=== PATIENT | female | born 1955 | race African-American/Black ===

== ENCOUNTER 2016-11-25 20:32 | Emergency (ER) | payer MEDICAID ==
[~2016-11-25] VITALS: Ht 160 cm; Wt 70.0 kg
[~2016-11-25 20:32] MED LIST: PRED5TAB48 PO
[2016-11-25] MEDS ORDERED: IPRATROPIUM BROMIDE (0.02%) 0.5MG/2.5ML NEB HHN STA (23:16)
[2016-11-25] MEDS ORDERED: PREDNISONE 20MG TABLET PO STA (23:16)
[2016-11-25] MEDS ORDERED: ALBUTEROL (0.083%) 2.5MG/3ML NEB HHN STA (23:16)
[2016-11-26 02:23] VITALS: BP 132/68
== END 2016-11-26 02:28 | disposition home or self-care (01) ==
LOC: ER 21:46
DX: J45.901 Unspecified asthma with (acute) exacerbation (principal)
CPT/HCPCS: 94640; 99283; J7512; J7611; Z7610

== ENCOUNTER 2017-01-30 22:48 | Emergency (ER) | payer MEDICAID ==
[~2017-01-30] VITALS: Ht 160 cm; Wt 71.0 kg
[2017-01-31] MEDS ORDERED: IBUPROFEN 600MG TABLET PO ONE (07:00)
[2017-01-31 07:35] VITALS: BP 124/63
== END 2017-01-31 08:20 | disposition home or self-care (01) ==
LOC: ER 01-31 08:11
DX: S63.501A Unspecified sprain of right wrist, initial encounter (principal); S90.32XA Contusion of left foot, initial encounter; S90.31XA Contusion of right foot, initial encounter; S50.01XA Contusion of right elbow, initial encounter; J45.909 Unspecified asthma, uncomplicated; W01.0XXA Fall on same level from slipping, tripping and stumbling without subsequent striking against object, initial encounter; Y93.89 Activity, other specified; Y92.89 Other specified places as the place of occurrence of the external cause; Y99.8 Other external cause status
CPT/HCPCS: 29125; 73080; 73110; 73630; 99284

== ENCOUNTER 2017-02-04 03:48 | Emergency (ER) | payer MEDICAID ==
[~2017-02-04] VITALS: Ht 160 cm; Wt 71.0 kg
[2017-02-04] MEDS ORDERED: IPRATROPIUM BROMIDE (0.02%) 0.5MG/2.5ML NEB HHN STA (06:58)
[2017-02-04] MEDS ORDERED: ALBUTEROL (0.083%) 2.5MG/3ML NEB HHN STA (06:58)
[2017-02-04 08:00] VITALS: BP 123/63
== END 2017-02-04 08:44 | disposition home or self-care (01) ==
LOC: ER 07:28
DX: J45.901 Unspecified asthma with (acute) exacerbation (principal); S63.501D Unspecified sprain of right wrist, subsequent encounter; X58.XXXD Exposure to other specified factors, subsequent encounter
CPT/HCPCS: 94640; 99283; J7611; Z7610

== ENCOUNTER 2017-02-12 23:21 | Emergency (ER) | payer MEDICAID ==
[~2017-02-12] VITALS: Ht 160 cm; Wt 72.0 kg
[2017-02-13] MEDS ORDERED: AZITHROMYCIN 500 MG TABLET PO STA (05:11)
[2017-02-13] MEDS ORDERED: ALBUTEROL (0.083%) 2.5MG/3ML NEB HHN STA (05:11)
[2017-02-13] MEDS ORDERED: IPRATROPIUM BROMIDE (0.02%) 0.5MG/2.5ML NEB HHN STA (05:11)
[2017-02-13] MEDS ORDERED: PREDNISONE 20MG TABLET PO STA (05:11)
[2017-02-13] MEDS ORDERED: ALBUTEROL (0.5%) 2.5MG/0.5ML NEB HHN ONE (05:39)
[2017-02-13 08:51] VITALS: BP 138/69
== END 2017-02-13 09:01 | disposition home or self-care (01) ==
LOC: ER 02-13 07:24
DX: S62.001A Unspecified fracture of navicular [scaphoid] bone of right wrist, initial encounter for closed fracture (principal); J45.901 Unspecified asthma with (acute) exacerbation; X58.XXXA Exposure to other specified factors, initial encounter; Y93.89 Activity, other specified; Y92.89 Other specified places as the place of occurrence of the external cause; Y99.8 Other external cause status
CPT/HCPCS: 29130; 71010; 73110; 94640; 99284; J7512; J7611; Z7610

== ENCOUNTER 2017-02-25 21:43 | Emergency (ER) | payer MEDICAID ==
[~2017-02-25] VITALS: Ht 160 cm; Wt 70.0 kg
[2017-02-25] MEDS ORDERED: PREDNISONE 20MG TABLET PO STA (22:31)
[2017-02-25] MEDS ORDERED: IPRATROPIUM BROMIDE (0.02%) 0.5MG/2.5ML NEB HHN STA (22:31)
[2017-02-26] MEDS: ALBUTEROL (0.083%) 2.5MG/3ML NEB HHN SCH ×3 (00:30→01:00)
[2017-02-26 01:23] VITALS: BP 140/78
== END 2017-02-26 00:52 | disposition home or self-care (01) ==
LOC: ER 21:43
DX: J45.901 Unspecified asthma with (acute) exacerbation (principal); R00.1 Bradycardia, unspecified; R03.0 Elevated blood-pressure reading, without diagnosis of hypertension; S62.101D Fracture of unspecified carpal bone, right wrist, subsequent encounter for fracture with routine healing; X58.XXXD Exposure to other specified factors, subsequent encounter
CPT/HCPCS: 71010; 93005; 94640; 99284; J7512; J7611

== ENCOUNTER 2017-03-01 22:12 | Emergency (ER) | payer MEDICAID ==
[~2017-03-01] VITALS: Ht 160 cm; Wt 70.0 kg
[2017-03-02 08:38] VITALS: BP 128/72
== END 2017-03-02 09:07 | disposition home or self-care (01) ==
LOC: ER 22:12
DX: S63.501D Unspecified sprain of right wrist, subsequent encounter (principal); J45.909 Unspecified asthma, uncomplicated; X58.XXXD Exposure to other specified factors, subsequent encounter
CPT/HCPCS: 73090; 73110; 73130; 99284

== ENCOUNTER 2017-03-12 22:19 | Emergency (ER) | payer MEDICAID ==
[~2017-03-12] VITALS: Ht 165.1 cm; Wt 75.0 kg
[2017-03-13] MEDS ORDERED: IPRATROPIUM BROMIDE (0.02%) 0.5MG/2.5ML NEB HHN STA (02:36)
[2017-03-13] MEDS ORDERED: ALBUTEROL (0.083%) 2.5MG/3ML NEB HHN STA (02:36)
[2017-03-13] MEDS ORDERED: PREDNISONE 20MG TABLET PO STA (02:36)
[2017-03-13 07:05] VITALS: BP 130/72
== END 2017-03-13 07:19 | disposition home or self-care (01) ==
LOC: ER 22:20
DX: J45.901 Unspecified asthma with (acute) exacerbation (principal); M79.601 Pain in right arm; R20.0 Anesthesia of skin
CPT/HCPCS: 29125; 71010; 94640; 99283; J7512; J7611; Z7610

== ENCOUNTER 2017-03-18 03:18 | Emergency (ER) | payer MEDICAID ==
[~2017-03-18] VITALS: Ht 160 cm; Wt 70.0 kg
[2017-03-18 08:00] VITALS: BP 121/67
== END 2017-03-18 08:56 | disposition home or self-care (01) ==
LOC: ER 03:18
DX: M79.641 Pain in right hand (principal); M25.531 Pain in right wrist; Z91.81 History of falling; J45.909 Unspecified asthma, uncomplicated
CPT/HCPCS: 73110; 73130; 99284; A4565